=== PATIENT | male | born 1935 | race Caucasian/White ===

== ENCOUNTER → 2016-10-18 | Outpatient (CLI) | payer MEDICARE, BC ==
[2016-10-18 10:48] LABS: CREATININE 0.9 mg/dL (0.6-1.3)
== END | disposition disaster alternative care site (69) ==
LOC: GRAD 09:49 → GLAB 10:00
PROVIDERS: Neurological Surgery
DX: D32.9 Benign neoplasm of meninges, unspecified (principal); Z48.3 Aftercare following surgery for neoplasm
CPT/HCPCS: A9577